=== PATIENT | male | born 1940 | race Caucasian/White ===

== ENCOUNTER → 2016-05-01 | Outpatient (CLI) | payer MEDICARE, OTHER, BC ==
[~2016-05-01] MED LIST: ALPRAZOLAM0.5 MG PO; ASPIRIN 325MG325 MG NG; CLONIDINE TOP; COREG 25MG TAB25 MG PO; ESCITALOPRAM OX20 MG PO; HUMALOG100 UNIT/3 SQ; HYDRALAZINE HCL25 MG PO; ISOSORBIDE MONO30 MG PO; LIPITOR TAB 2020 MG PO; MECLIZINE HCL25 MG PO; MONTELUKAST SOD10 MG PO; NEURONTIN 400400 MG PO; NEXIUM40 MG PO; NITROSTAT 0.40.4 MG SL; NORVASC 5 MG TAB5 MG PO; OMEGA 3 1,0001 EACH PO; RANEXA500 MG PO; SPIRONOLACTONE25 MG PO; SYNTHROID50 MCG PO; TOUJEO SOLOSTAR SQ; TRAMADOL HCL50 MG PO; VICTOZA 1818 MG/3 ML SC; ZANAFLEX4 M1 PO
== END ==
DX: R22.1 Localized swelling, mass and lump, neck (principal)
CPT/HCPCS: 36415; 82565; 84520

== ENCOUNTER → 2016-05-02 | Outpatient (CLI) | payer MEDICARE, OTHER, BC | LOC: CT 04-25 08:00 | DX: R22.1 Localized swelling, mass and lump, neck (principal) | CPT/HCPCS: 70491; J7050; Q9965 ==